=== PATIENT | male | born 1990 | race Caucasian/White ===

== ENCOUNTER → 2024-09-19 14:14 | Outpatient (REF) | payer BC, SELFPAY | LOC: HWRAD 14:14 | PROVIDERS: ATTENDING PHYSICIAN Family Medicine | DX: K59.00 Constipation, unspecified (principal) | CPT/HCPCS: 74022 ==

== ENCOUNTER → 2025-02-28 11:23 | Outpatient (REF) | payer BC, SELFPAY | LOC: HWRAD 11:23 | PROVIDERS: ATTENDING PHYSICIAN Family Medicine | DX: M26.609 Unspecified temporomandibular joint disorder, unspecified side (principal) | CPT/HCPCS: 70480 ==